=== PATIENT | female | born 1985 | race Caucasian/White ===

== ENCOUNTER 2022-08-09 15:41 | Emergency (ER) | payer MEDICAID ==
[2022-08-09] MEDS ORDERED: Cyclobenzaprine 10 MG Tab PO ONE (16:25)
[2022-08-09 16:54] VITALS: BP 128/79; PULSE 85
== END 2022-08-09 16:40 | disposition home or self-care (01) ==
LOC: JD.ED 15:41
DX: M62.830 Muscle spasm of back (principal)
CPT/HCPCS: 99283; A9270; 99282

== ENCOUNTER 2023-03-11 21:40 | Emergency (ER) | payer MEDICAID ==
[2023-03-11] MEDS ORDERED: LORazepam 1 MG Tab PO ONE (22:18)
[2023-03-11] MEDS ORDERED: Ondansetron 4 MG Tab.DIS PO ONE (22:18)
[2023-03-11] MEDS ORDERED: Sodium Chloride 0.9% 1,000 ML IV SCH (23:45)
[2023-03-12] MEDS: Potassium Chloride 10 MEQ in Premix Bag 1 BAG IV SCH ×6 (00:32→05:42)
[2023-03-12] MEDS ORDERED: Potassium Chloride 20 MEQ Tab.ER PO ONE (06:51)
[2023-03-12] MEDS ORDERED: LORazepam 1 MG Tab PO ONE (06:52)
[2023-03-12 07:01] VITALS: PULSE 78
[2023-03-12 08:24] VITALS: BP 118/82
== END 2023-03-12 07:30 | disposition home or self-care (01) ==
LOC: JD.ED 21:40
DX: F10.20 Alcohol dependence, uncomplicated (principal); Y90.0 Blood alcohol level of less than 20 mg/100 ml; F32.A Depression, unspecified; F41.9 Anxiety disorder, unspecified
CPT/HCPCS: 36415; 80048; 80053; 80143; 80179; 80306; 80307; 81025; 83735; 84443; 85007; 85027; 93005; 96365; 96366; 99284; A9270; J3480; J7030; 93010; 99283

== ENCOUNTER 2023-04-17 13:26 | Emergency (ER) | payer MEDICAID ==
[2023-04-17] MEDS ORDERED: Lactated Ringers 1,000 ML IV ONE ×2 (14:02→15:27)
[2023-04-17] MEDS ORDERED: Ondansetron 4 MG/2 ML SDV IVPUSH ONE (14:03)
[2023-04-17] MEDS ORDERED: Lactated Ringers 1,000 ML IV SCH (14:15)
[2023-04-17 14:31] LABS: BASOPHILS ABSOLUTE AUTO 0.04 K/mm3 (0.01-0.08); BASOPHILS PERCENT AUTO 0.5 % (0.1-1.2); EOSINOPHILS ABSOLUTE AUTO 0.01 K/mm3 (0.04-0.36); EOSINOPHILS PERCENT AUTO 0.1 (0.7-5.8); HEMATOCRIT 48.3 % (34.1-44.9); HEMOGLOBIN 17.1 gm/dl (11.2-15.7); IMMATURE GRAN ABSOLUTE AUTO 0.01 K/mm3 (0.00-0.10); IMMATURE GRAN PERCENT AUTO 0.1 % (<=1.0); LYMPHOCYTES ABSOLUTE AUTO 1.16 K/mm3 (1.18-3.74); LYMPHOCYTES PERCENT AUTO 14.3 % (19.3-51.7); MEAN CORPUSCULAR HEMOGLOBIN 31.8 pg (25.6-32.2); MEAN CORPUSCULAR HGB CONC 35.4 g/dl (32.2-35.5); MEAN CORPUSCULAR VOLUME 89.9 fl (79.4-94.8); MEAN PLATELET VOLUME 10.3 fl (9.4-12.3); MONOCYTES ABSOLUTE AUTO 0.62 K/mm3 (0.24-0.36); MONOCYTES PERCENT AUTO 7.7 % (4.7-12.5); NEUTROPHILS ABSOLUTE AUTO 6.26 K/mm3 (1.56-6.13); NEUTROPHILS PERCENT AUTO 77.3 % (34.0-71.1); PLATELET COUNT,PLT 239 K/mm3 (182-369); RED BLOOD CELL COUNT 5.37 M/mm3 (3.98-5.22)
[2023-04-17 14:53] LABS: ANION GAP 19.9 (5-15); BILIRUBIN TOTAL 1.8 mg/dL (0.2-1.0); CALCIUM 10.5 mg/dL (8.5-10.1); CREATININE 1.3 mg/dL (0.55-1.02); POTASSIUM,K 2.9 mEq/L (3.5-5.1)
[2023-04-17 15:21] LABS: CORONAVIRUS COVID-19 NAA NEGATIVE (NEGATIVE); INFLUENZA A NAA NEGATIVE (NEGATIVE)
[2023-04-17] MEDS: Potassium Chloride 10 MEQ in Premix Bag 1 BAG IV SCH ×4 (15:30→18:35)
[2023-04-17 16:02] LABS: APPEARANCE,URINE SLT CLOUDY (Clear); BILIRUBIN,URINE 3+ (Negative); COLOR,URINE DARK YELLOW (Yellow); GLUCOSE,URINE NEGATIVE (Negative); KETONES,URINE 3+ (Negative); LEUKOCYTE ESTERASE,URINE NEGATIVE (Negative); NITRITE,URINE NEGATIVE (Negative); OCCULT BLOOD,URINE NEGATIVE (Negative); PROTEIN,URINE 3+ (Negative)
[2023-04-17 16:28] LABS: BACTERIA,URINE MODERATE /hpf (FEW); FINE GRANULAR CASTS,URINE 20-30 /lpf (0-5); MUCUS,URINE MANY /hpf (FEW); RBC,URINE 0-5 /hpf (0-5)
[2023-04-17] MEDS ORDERED: Potassium Chloride 20 MEQ Tab.ER PO ONE (17:32)
[2023-04-17] MEDS ORDERED: Magnesium Oxide 400 MG Tab PO ONE (18:12)
[2023-04-17 20:44] LABS: ANION GAP 12.4 (5-15); BUN/CREATININE RATIO 13.3 (14-18); CALCIUM 9.4 mg/dL (8.5-10.1); CREATININE 0.9 mg/dL (0.55-1.02); EST CRCL DRUG DOSING (CG) 80.9 mL/min; POTASSIUM,K 3.4 mEq/L (3.5-5.1)
[2023-04-17 21:46] VITALS: BP 148/98; PULSE 76
== END 2023-04-17 20:28 | disposition left against medical advice (07) ==
LOC: JD.ED 13:26
DX: E83.42 Hypomagnesemia (principal); E87.6 Hypokalemia; R11.2 Nausea with vomiting, unspecified; Z98.890 Other specified postprocedural states; Z20.822 Contact with and (suspected) exposure to COVID-19
CPT/HCPCS: 0240U; 36415; 80048; 80053; 81001; 83605; 83690; 83735; 84703; 85025; 93005; 96361; 96365; 96366; 96375; 99284; A9270; J2405; J3480; J7120; 93010

== ENCOUNTER 2023-08-20 19:20 | Emergency (ER) | payer MEDICAID ==
[2023-08-20] MEDS ORDERED: Acetaminophen/oxyCODONE 325-5 MG Tab PO ONE (20:21)
[2023-08-21 04:22] VITALS: BP 147/108; PULSE 85
== END 2023-08-20 22:59 | disposition home or self-care (01) ==
LOC: JD.ED 19:20
DX: S83.91XA Sprain of unspecified site of right knee, initial encounter (principal); W50.0XXA Accidental hit or strike by another person, initial encounter
CPT/HCPCS: 73562; 99283; A9270

== ENCOUNTER 2024-01-01 07:10 | Emergency (ER) | payer MEDICAID ==
[2024-01-01] MEDS: Sodium Chloride 0.9% 10 ML Syringe FLUSH PRN (07:25)
[2024-01-01 07:48] LABS: APPEARANCE,URINE CLEAR (Clear); BILIRUBIN,URINE NEGATIVE (Negative); COLOR,URINE YELLOW (Yellow); GLUCOSE,URINE NEGATIVE (Negative); KETONES,URINE NEGATIVE (Negative); LEUKOCYTE ESTERASE,URINE NEGATIVE (Negative); NITRITE,URINE NEGATIVE (Negative); OCCULT BLOOD,URINE NEGATIVE (Negative); PROTEIN,URINE NEGATIVE (Negative); UROBILINOGEN,URINE 0.2 (0.2-1.0)
[2024-01-01] MEDS: ALPRAZolam 0.25 MG Tab PO ONE (07:51)
[2024-01-01 08:00] LABS: ALBUMIN 3.5 g/dl (3.4-5.0); ANION GAP 18.6 (5-15); BILIRUBIN TOTAL 0.3 mg/dL (0.2-1.0); BUN/CREATININE RATIO 7.8 (14-18); CALCIUM 8.8 mg/dL (8.5-10.1); CREATININE 0.9 mg/dL (0.55-1.02); EST CRCL DRUG DOSING (CG) 83.23 mL/min; POTASSIUM,K 2.6 mEq/L (3.5-5.1); PROTEIN TOTAL,TP 6.9 g/dl (6.4-8.2)
[2024-01-01 08:19] LABS: BACTERIA,URINE FEW /hpf (FEW); EPITHELIAL CELLS,URINE 0-5 /hpf (0-5); MUCUS,URINE FEW /hpf (FEW); RBC,URINE 0-5 /hpf (0-5); WBC,URINE 0-5 /hpf (0-5)
[2024-01-01] MEDS: Potassium Bicarbonate/Cit Ac 20 MEQ Effervescent Tab PO ONE (08:41)
[2024-01-01 08:47] VITALS: BP 121/94; PULSE 66
== END 2024-01-01 08:57 | disposition home or self-care (01) ==
LOC: JD.ED 07:10
DX: E87.6 Hypokalemia (principal); F41.0 Panic disorder [episodic paroxysmal anxiety]
CPT/HCPCS: 36415; 80053; 81001; 81025; 85379; 93005; 99284; A9270; J3490; 93010; 99283

== ENCOUNTER 2024-01-04 17:24 | Emergency (ER) | payer MEDICAID ==
[2024-01-04] MEDS: hydrOXYzine HCl 25 MG Tab PO ONE (18:19)
[2024-01-04] MEDS: LORazepam 1 MG Tab PO ONE (19:10)
[2024-01-04] MEDS: Ondansetron 4 MG Tab.DIS PO ONE (19:20)
[2024-01-04 20:04] LABS: CORONAVIRUS COVID-19 NAA NEGATIVE (NEGATIVE); INFLUENZA A NAA NEGATIVE (NEGATIVE); RESPIRATORY SYNCYTIAL VIR NAA NEGATIVE (NEGATIVE)
[2024-01-04 21:08] VITALS: BP 94/56; PULSE 71
== END 2024-01-04 20:38 | disposition home or self-care (01) ==
LOC: JD.ED 17:24
DX: F41.9 Anxiety disorder, unspecified (principal); F32.A Depression, unspecified; Z79.899 Other long term (current) drug therapy
CPT/HCPCS: 0241U; 99283; A9270

== ENCOUNTER 2024-03-13 07:09 | Emergency (ER) | payer MEDICAID ==
[2024-03-13 07:20] VITALS: PULSE 68
[2024-03-13] MEDS: Ketorolac 60 MG/2 ML SDV IM ONE (08:37)
[2024-03-13] MEDS: Orphenadrine 60 MG/2 ML Inj IM ONE (08:39)
[2024-03-13 11:27] VITALS: BP 117/86
== END 2024-03-13 11:24 | disposition home or self-care (01) ==
LOC: JD.ED 07:09
DX: S23.3XXA Sprain of ligaments of thoracic spine, initial encounter (principal); F17.210 Nicotine dependence, cigarettes, uncomplicated; Z79.899 Other long term (current) drug therapy; Z86.16 Personal history of COVID-19; X50.0XXA Overexertion from strenuous movement or load, initial encounter; Y93.K1 Activity, walking an animal
CPT/HCPCS: 73030; 96372; 99283; J1885; J2360; 99282